=== PATIENT | male | born 1955 | race Two or more races ===

== ENCOUNTER 2023-09-26 10:50 | Inpatient (IN) | payer OTHER, MEDICAID ==
[2023-09-26] VITALS (37 sets, daily range): BP systolic 111–137; BP diastolic 63–86; PULSE 68–120; RESP 12–20; TEMP 97.3–99.1; O2SAT 80–98
[~2023-09-26] VITALS: Ht 157.5 cm; Wt 113.8 kg
[2023-09-26] MEDS: ALBUTEROL SULF 2.5 MG/0.5ML(0.5%) NEB SOLN HHN ONE (11:51)
[2023-09-26] MEDS: IPRATROPIUM BROM 0.5 MG/2.5ML INH SOL HHN ONE (11:51)
[2023-09-26] MEDS: SUCCINYLCHOLINE CHLORIDE 20 MG/ML 10ML VIAL IV ONE (12:00)
[2023-09-26 12:04] LABS: Hematocrit 40.8 % (41.0-53.0); Hemoglobin 13.1 g/dL (13.5-17.5); Mean Corpuscular Hemoglobin 29.3 pg (28.0-32.0); Mean Corpuscular Hgb Conc. 32.1 g/dL (32.0-36.0); Mean Corpuscular Volume 91.3 fL (80.0-100.0); Red Blood Cells 4.47 10^6/uL (4.5-5.90); Red Cell Distribution Width 15.3 % (11.8-14.3); White Blood Cell 8.4 10^3/uL (4.4-10.8)
[2023-09-26 12:08] LABS: Base Excess 13.1 mmol/L (-2.0-2.0)
[2023-09-26 12:13] LABS: Chloride 104 mmol/L (98-107); Potassium 4.2 mmol/L (3.5-5.1); Sodium 141 mmol/L (136-145)
[2023-09-26 12:14] LABS: Anion Gap 0 (5-15); Calcium 8.3 mg/dL (8.7-10.4); Carbon Dioxide 37 mmol/L (20-30)
[2023-09-26] MEDS: ETOMIDATE (2MG/ML) 20ML VIAL IV ONE (12:17)
[2023-09-26] MEDS: ROCURONIUM 10MG/ML 10ML VIAL IV ONE ×2 (12:17→13:04)
[2023-09-26 12:19] LABS: Blood Urea Nitrogen 19 mg/dL (9-23); Glucose 112 mg/dL (74-106)
[2023-09-26 12:25] LABS: Basophils % (manual) 0 (0.0-2.0); Blast Cells 0; Metamyelocytes % 0; Promyelocytes % 0; Reactive Lymphocytes 0
[2023-09-26 12:36] LABS: COVID19 ANTIGEN SOFIA FIA NEGATIVE (NEGATIVE)
[2023-09-26 12:39] LABS: Band Neutrophils % (manual) 1; Eosinophils % (manual) 1 (0-7); Lymphocytes % (manual) 14 (10.0-50.0); Monocytes % (manual) 10 (0-12); Myelocytes % 2; Platelet Estimate Decreased; Rouleau ED
[2023-09-26] MEDS: MIDAZOLAM DRIP 50 mg/50mL 50 ML IV SCH (12:44)
[2023-09-26] MEDS ORDERED: ALBUTEROL SULF 2.5 MG/0.5ML(0.5%) NEB SOLN NEB PRN (12:45)
[2023-09-26] MEDS ORDERED: IPRATROPIUM BROM 0.5 MG/2.5ML INH SOL NEB PRN (12:45)
[2023-09-26] MEDS: fentaNYL Drip 2500mCg/250mlNS 250 ML IV SCH (12:57)
[2023-09-26] MEDS: fentaNYL Drip 2500mCg/250mlNS 250 ML IV ONE (13:04)
[2023-09-26] MEDS ORDERED: TAMS0.4C36 PO (13:13)
[2023-09-26] MEDS ORDERED: RISP2TAB62 PO (13:13)
[2023-09-26] MEDS ORDERED: SERT-160 PO (13:13)
[2023-09-26] MEDS: IOHEXOL 350 MG/ML 100ML IJ ONE (13:34)
[2023-09-26] MEDS: IPRATROPIUM BROM 0.5 MG/2.5ML INH SOL NEB SCH (14:00)
[2023-09-26] MEDS: ALBUTEROL SULF 2.5 MG/0.5ML(0.5%) NEB SOLN NEB SCH (14:00)
[2023-09-26] MEDS: PROPOFOL 100 ML IV SCH (14:00)
[2023-09-26] MEDS: PROPOFOL 100 ML IV ONE (14:01)
[2023-09-26] MEDS: FUROSEMIDE 20 MG/2 ML VIAL IV ONE (14:23)
[2023-09-26] MEDS: ENOXAPARIN SOD 40 MG/0.4 ML SYRINGE SC ONE (14:23)
[2023-09-26] MEDS: PANTOPRAZOLE 40 MG/10 ML VIAL INJ IV ONE (14:23)
[2023-09-26 14:24] LABS: Albumin 3.7 g/dL (3.2-4.8); Blood Alcohol 3.9 mg/dL (<10); Magnesium 1.9 mg/dL (1.6-2.6)
[2023-09-26 14:25] LABS: Bilirubin, Direct 0.3 mg/dL (<0.3); Bilirubin, Total 0.9 mg/dL (0.2-1.0); Total Protein 6.9 g/dL (5.7-8.2)
[2023-09-26 14:27] LABS: Base Excess 5.5 mmol/L (-2.0-2.0)
[2023-09-26] MEDS: PIPERACILLIN-TAZOB 3.375GM 100 ML IV ONE (14:30)
[2023-09-26] MEDS: LIDOCAINE 2% JELLY 11ml (GLYDO) ONE (16:29)
[2023-09-26] MEDS: LIDOCAINE 2% JELLY 11ml (GLYDO) UR ONE (16:45)
[2023-09-26] MEDS: PIPERACILLIN-TAZOB 3.375GM 100 ML IV SCH (21:04)
[2023-09-26] MEDS: risperiDONE 1 MG TAB PO SCH (21:28)
[2023-09-26] MEDS ORDERED: PATIENTS OWN MEDICATION (Risperidone 1 TAB) PO SCH (22:00)
[2023-09-27] VITALS (101 sets, daily range): BP systolic 71–133; BP diastolic 40–79; PULSE 68–110; RESP 20–24; TEMP 96.3–100.2; O2SAT 86–100
[2023-09-27 01:14] LABS: Urine Bacteria None Seen /hpf (None Seen); Urine Blood TRACE /uL (Negative); Urine Clarity Clear (Clear); Urine Color Light-Yellow (Yellow); Urine Hyaline Cast FEW /lpf (0 - 2); Urine Protein, UAD 1+ (Negative); Urine Specific Gravity 1.032 (1.001-1.035); Urine Urobilinogen Normal (Negative); Urine WBC 5 /hpf (0 - 3)
[2023-09-27 01:24] LABS: Amphetamine Screen, Urine Neg (NEGATIVE); Barbiturate Scree,Urine Neg (NEGATIVE); Benzodiazephine Screen, Urine Pos (NEGATIVE); Cannabinoid Screen, Urine Neg (NEGATIVE); Cocaine Screen, Urine Neg (NEGATIVE); Opiate Scree,Urine Neg (NEGATIVE); Phencyclidine Screen, Urine Neg (NEGATIVE)
[2023-09-27 01:41] LABS: Rapid Influenza A Negative (Negative); Rapid Influenza B Negative (Negative)
[2023-09-27] MEDS: NOREPINEPHRINE 8 MG/250ML KIT 250 ML IV SCH (04:15)
[2023-09-27 04:22] LABS: Hemoglobin 12.1 g/dL (13.5-17.5); Mean Corpuscular Hemoglobin 28.9 pg (28.0-32.0); Mean Corpuscular Hgb Conc. 31.8 g/dL (32.0-36.0); Mean Corpuscular Volume 90.9 fL (80.0-100.0); Red Blood Cells 4.18 10^6/uL (4.5-5.90); Red Cell Distribution Width 15.6 % (11.8-14.3); White Blood Cell 7.3 10^3/uL (4.4-10.8)
[2023-09-27 04:33] LABS: Band Neutrophils % (manual) 0; Basophils % (manual) 0 (0.0-2.0); Blast Cells 0; Metamyelocytes % 0; Promyelocytes % 0; Reactive Lymphocytes 0
[2023-09-27 04:41] LABS: Alanine Aminotransferase 18 U/L (7-40); Albumin 3.1 g/dL (3.2-4.8); Alkaline Phosphatase 59 U/L (46-116); Anion Gap 5 (5-15); Aspartate Aminotransferase 12 U/L (13-40); BUN/Creatinine Ratio 14.5 (10.0-20.0); Bilirubin, Total 0.7 mg/dL (0.2-1.0); Blood Urea Nitrogen 12 mg/dL (9-23); Calcium 7.8 mg/dL (8.7-10.4); Carbon Dioxide 35 mmol/L (20-30); Chloride 103 mmol/L (98-107); Glucose 104 mg/dL (74-106); Magnesium 1.9 mg/dL (1.6-2.6); Potassium 3.2 mmol/L (3.5-5.1); Sodium 143 mmol/L (136-145); Total Protein 5.9 g/dL (5.7-8.2)
[2023-09-27 05:02] LABS: Eosinophils % (manual) 2 (0-7); Lymphocytes % (manual) 24 (10.0-50.0); Monocytes % (manual) 8 (0-12); Myelocytes % 3
[2023-09-27 05:03] LABS: Platelet Estimate Decreased
[2023-09-27 08:18] LABS: Base Excess 6.6 mmol/L (-2.0-2.0)
[2023-09-27] MEDS: TAMSULOSIN HYDROCHLORIDE 0.4 MG CAP PO SCH (08:21)
[2023-09-27] MEDS: PANTOPRAZOLE 40 MG/10 ML VIAL INJ IV SCH (08:21)
[2023-09-27] MEDS: SERTRALINE HCL 50 MG TAB PO SCH (08:23)
[2023-09-27] MEDS: FUROSEMIDE 20 MG/2 ML VIAL IV SCH (08:24)
[2023-09-27] MEDS: ENOXAPARIN SOD 40 MG/0.4 ML SYRINGE SC SCH (08:24)
[2023-09-27] MEDS ORDERED: VANCOMYCIN PER PHARMACY 0 MG IV SCH (10:15)
[2023-09-27] MEDS: POTASSIUM CHL 20MEQ/100ML 100 ML IV SCH (10:55)
[2023-09-27] MEDS ORDERED: FUROSEMIDE 20 MG/2 ML VIAL IV SCH (11:30)
[2023-09-27] MEDS: FUROSEMIDE 20 MG/2 ML VIAL IV ONE (12:09)
[2023-09-27] MEDS: VANCOMYCIN 1GM/200ML 200 ML IV ONE (13:04)
[2023-09-27] MEDS ORDERED: SODIUM CHLORIDE LOCK 10 ML ONE (13:34)
[2023-09-27] MEDS ORDERED: MIDAZOLAM HCL 5 MG/ML-1ML VIAL ONE (13:34)
[2023-09-27] MEDS ORDERED: fentaNYL CITRATE 100 MCG/2 ML VL ONE (13:35)
[2023-09-27] MEDS ORDERED: LIDOCAINE 2% JELLY 11ml (GLYDO) ONE (13:58)
[2023-09-27] MEDS ORDERED: EPINEPHrine HCL 1 MG/1 ML AMP ONE (13:59)
[2023-09-27] MEDS ORDERED: LIDOCAINE 2%HCL (LOCAL ANESTH.) INJ 20ML MDV ONE (13:59)
[2023-09-27] MEDS ORDERED: GLYCOPYRROLATE 0.2 MG/ML 1ML VIAL ONE (13:59)
[2023-09-27] MEDS: CEFEPIME 1GM/ 50ML 50 ML IV SCH (14:45)
[2023-09-27] MEDS ORDERED: FURO40TA4 PO (16:50)
[2023-09-27] MEDS ORDERED: METO25TA5 PO (16:50)
[2023-09-27] MEDS ORDERED: CHOL1TAB42 PO (16:50)
[2023-09-27] MEDS ORDERED: POTA-180 PO (16:50)
[2023-09-27] MEDS ORDERED: NIFE1TAB30 PO (16:50)
[2023-09-27] MEDS ORDERED: ROCURONIUM 10MG/ML 10ML VIAL IV PRN (18:30)
[2023-09-27] MEDS: VANCOMYCIN 1GM/200ML 200 ML IV SCH (20:56)
[2023-09-28] VITALS (113 sets, daily range): BP systolic 85–154; BP diastolic 44–86; PULSE 62–88; RESP 18–21; TEMP 96.6–99.1; O2SAT 80–100
[2023-09-28 04:11] LABS: Basophils # (auto) 0 10 ^3/uL (0-0.2); Basophils % (auto) 0.2 % (0.0-2.0); Eosinophils # (auto) 0.3 10 ^3/uL (0-0.8); Eosinophils % (auto) 3.9 % (0.0-7.0); Hematocrit 37.5 % (41.0-53.0); Hemoglobin 12.2 g/dL (13.5-17.5); Lymphocytes # (auto) 1.1 10 ^3/uL (0.4-5.4); Lymphocytes % (auto) 16.5 % (10.0-50.0); Mean Corpuscular Hemoglobin 29.4 pg (28.0-32.0); Mean Corpuscular Hgb Conc. 32.7 g/dL (32.0-36.0); Mean Corpuscular Volume 90.1 fL (80.0-100.0); Monocytes # (auto) 0.6 10 ^3/uL (0-1.3); Neutrophils # (auto) 4.6 10 ^3/uL (1.6-8.6); Neutrophils % (auto) 70.4 % (37.0-80.0); Nucleated Red Blood Cells % 0.3 %; Red Blood Cells 4.16 10^6/uL (4.5-5.90); Red Cell Distribution Width 15.8 % (11.8-14.3); White Blood Cell 6.6 10^3/uL (4.4-10.8)
[2023-09-28 04:38] LABS: Alanine Aminotransferase 14 U/L (7-40); Alkaline Phosphatase 59 U/L (46-116); Anion Gap 5 (5-15); Aspartate Aminotransferase 9 U/L (13-40); BUN/Creatinine Ratio 9.5 (10.0-20.0); Bilirubin, Total 0.8 mg/dL (0.2-1.0); Blood Urea Nitrogen 7 mg/dL (9-23); Calcium 7.3 mg/dL (8.5-10.1); Carbon Dioxide 33 mmol/L (20-30); Chloride 105 mmol/L (98-107); Glucose 95 mg/dL (74-106); Potassium 3.2 mmol/L (3.5-5.1); Sodium 143 mmol/L (136-145)
[2023-09-28 04:39] LABS: Total Protein 5.7 g/dL (5.7-8.2)
[2023-09-28] MEDS: POTASSIUM CHL 20MEQ/100ML 100 ML IV ONE ×2 (05:42→12:56)
[2023-09-28 07:34] LABS: Base Excess 6.3 mmol/L (-2.0-2.0)
[2023-09-28] MEDS: FUROSEMIDE 40 MG/4 ML VIAL IV SCH (09:52)
[2023-09-28] MEDS: POTASSIUM EFFERVESENT TAB 25 MEQ GT SCH (09:53)
[2023-09-28] MEDS: NOREPINEPHRINE 8 MG/250ML KIT 250 ML IV SCH (13:15)
[2023-09-29] VITALS (104 sets, daily range): BP systolic 84–149; BP diastolic 45–79; PULSE 65–102; RESP 14–30; TEMP 96.4–99; O2SAT 95–100
[2023-09-29 04:07] LABS: Basophils # (auto) 0 10 ^3/uL (0-0.2); Basophils % (auto) 0.4 % (0.0-2.0); Eosinophils # (auto) 0.3 10 ^3/uL (0-0.8); Eosinophils % (auto) 5.5 % (0.0-7.0); Hematocrit 37.7 % (41.0-53.0); Hemoglobin 12.1 g/dL (13.5-17.5); Lymphocytes # (auto) 1.1 10 ^3/uL (0.4-5.4); Lymphocytes % (auto) 21.8 % (10.0-50.0); Mean Corpuscular Hemoglobin 28.8 pg (28.0-32.0); Mean Corpuscular Hgb Conc. 32.1 g/dL (32.0-36.0); Mean Corpuscular Volume 89.6 fL (80.0-100.0); Monocytes # (auto) 0.5 10 ^3/uL (0-1.3); Monocytes % (auto) 8.8 % (0.0-12.0); Neutrophils # (auto) 3.3 10 ^3/uL (1.6-8.6); Neutrophils % (auto) 63.5 % (37.0-80.0); Nucleated Red Blood Cells % 0.2 %; Red Blood Cells 4.21 10^6/uL (4.5-5.90); Red Cell Distribution Width 15.7 % (11.8-14.3); White Blood Cell 5.2 10^3/uL (4.4-10.8)
[2023-09-29 04:33] LABS: Alanine Aminotransferase 10 U/L (7-40); Alkaline Phosphatase 56 U/L (46-116); Anion Gap 5 (5-15); BUN/Creatinine Ratio 9.3 (10.0-20.0); Blood Urea Nitrogen 7 mg/dL (9-23); Calcium 7.8 mg/dL (8.7-10.4); Carbon Dioxide 31 mmol/L (20-30); Chloride 109 mmol/L (98-107); Glucose 97 mg/dL (74-106); Potassium 3.4 mmol/L (3.5-5.1); Sodium 145 mmol/L (136-145)
[2023-09-29 04:34] LABS: Albumin 2.9 g/dL (3.2-4.8); Aspartate Aminotransferase 8 U/L (13-40); Bilirubin, Total 0.6 mg/dL (0.2-1.0); Total Protein 5.7 g/dL (5.7-8.2)
[2023-09-29 07:11] LABS: Base Excess 2.6 mmol/L (-2.0-2.0)
[2023-09-29] MEDS: METOCLOPRAMIDE HCL 5MG/ml INJ 2ml VIAL IV SCH (13:04)
[2023-09-29] MEDS: POTASSIUM CHL 20MEQ/100ML 100 ML IV ONE (13:04)
[2023-09-30] VITALS (102 sets, daily range): BP systolic 85–145; BP diastolic 46–86; PULSE 64–87; RESP 13–21; TEMP 97.9–99.1; O2SAT 85–98
[2023-09-30 03:07] LABS: Basophils # (auto) 0 10 ^3/uL (0-0.2); Basophils % (auto) 0.5 % (0.0-2.0); Eosinophils # (auto) 0.3 10 ^3/uL (0-0.8); Eosinophils % (auto) 7.3 % (0.0-7.0); Hematocrit 38.2 % (41.0-53.0); Hemoglobin 12.1 g/dL (13.5-17.5); Lymphocytes # (auto) 0.8 10 ^3/uL (0.4-5.4); Lymphocytes % (auto) 19.9 % (10.0-50.0); Mean Corpuscular Hemoglobin 28.4 pg (28.0-32.0); Mean Corpuscular Hgb Conc. 31.8 g/dL (32.0-36.0); Mean Corpuscular Volume 89.3 fL (80.0-100.0); Monocytes # (auto) 0.3 10 ^3/uL (0-1.3); Monocytes % (auto) 7.3 % (0.0-12.0); Neutrophils # (auto) 2.7 10 ^3/uL (1.6-8.6); Nucleated Red Blood Cells % 0.2 %; Red Blood Cells 4.28 10^6/uL (4.5-5.90); Red Cell Distribution Width 15.6 % (11.8-14.3); White Blood Cell 4.1 10^3/uL (4.4-10.8)
[2023-09-30 03:30] LABS: Alanine Aminotransferase 15 U/L (7-40); Albumin 2.9 g/dL (3.2-4.8); Alkaline Phosphatase 57 U/L (46-116); Anion Gap 1 (5-15); Aspartate Aminotransferase 18 U/L (13-40); BUN/Creatinine Ratio 10.7 (10.0-20.0); Bilirubin, Total 0.7 mg/dL (0.2-1.0); Blood Urea Nitrogen 8 mg/dL (9-23); Calcium 8.1 mg/dL (8.7-10.4); Carbon Dioxide 34 mmol/L (20-30); Chloride 109 mmol/L (98-107); Glucose 92 mg/dL (74-106); Potassium 3.7 mmol/L (3.5-5.1); Sodium 144 mmol/L (136-145); Total Protein 5.9 g/dL (5.7-8.2)
[2023-09-30] MEDS: POTASSIUM CHL 20MEQ/100ML 100 ML IV ONE (11:02)
[2023-09-30 15:54] LABS: Base Excess 6.6 mmol/L (-2.0-2.0)
[2023-10-01] VITALS (107 sets, daily range): BP systolic 103–170; BP diastolic 56–99; PULSE 66–102; RESP 15–23; TEMP 98.1–99.5; O2SAT 89–99
[2023-10-01 04:14] LABS: Basophils # (auto) 0 10 ^3/uL (0-0.2); Basophils % (auto) 0.2 % (0.0-2.0); Eosinophils # (auto) 0.3 10 ^3/uL (0-0.8); Eosinophils % (auto) 8.6 % (0.0-7.0); Hematocrit 37.7 % (41.0-53.0); Hemoglobin 12.1 g/dL (13.5-17.5); Lymphocytes # (auto) 0.7 10 ^3/uL (0.4-5.4); Lymphocytes % (auto) 17.8 % (10.0-50.0); Mean Corpuscular Hemoglobin 28.9 pg (28.0-32.0); Mean Corpuscular Hgb Conc. 32.1 g/dL (32.0-36.0); Monocytes # (auto) 0.3 10 ^3/uL (0-1.3); Monocytes % (auto) 7.8 % (0.0-12.0); Neutrophils # (auto) 2.4 10 ^3/uL (1.6-8.6); Neutrophils % (auto) 65.6 % (37.0-80.0); Nucleated Red Blood Cells % 0.2 %; Red Blood Cells 4.19 10^6/uL (4.5-5.90); Red Cell Distribution Width 15.8 % (11.8-14.3); White Blood Cell 3.7 10^3/uL (4.4-10.8)
[2023-10-01 04:25] LABS: Alanine Aminotransferase 40 U/L (7-40); Albumin 2.9 g/dL (3.2-4.8); Alkaline Phosphatase 55 U/L (46-116); Anion Gap 5 (5-15); Aspartate Aminotransferase 49 U/L (13-40); BUN/Creatinine Ratio 14.3 (10.0-20.0); Bilirubin, Total 0.5 mg/dL (0.2-1.0); Blood Urea Nitrogen 10 mg/dL (9-23); Calcium 8.5 mg/dL (8.7-10.4); Carbon Dioxide 31 mmol/L (20-30); Chloride 108 mmol/L (98-107); Glucose 88 mg/dL (74-106); Sodium 144 mmol/L (136-145)
[2023-10-01] MEDS: risperiDONE 1 MG TAB GT SCH (21:51)
[2023-10-02] VITALS (109 sets, daily range): BP systolic 102–186; BP diastolic 57–108; PULSE 71–112; RESP 12–36; TEMP 97.5–100; O2SAT 89–100
[2023-10-02 04:39] LABS: Basophils # (auto) 0 10 ^3/uL (0-0.2); Basophils % (auto) 0.3 % (0.0-2.0); Eosinophils # (auto) 0.3 10 ^3/uL (0-0.8); Eosinophils % (auto) 7.8 % (0.0-7.0); Hemoglobin 12.1 g/dL (13.5-17.5); Lymphocytes # (auto) 0.7 10 ^3/uL (0.4-5.4); Lymphocytes % (auto) 16.9 % (10.0-50.0); Mean Corpuscular Hemoglobin 28.5 pg (28.0-32.0); Mean Corpuscular Hgb Conc. 31.9 g/dL (32.0-36.0); Mean Corpuscular Volume 89.5 fL (80.0-100.0); Monocytes # (auto) 0.3 10 ^3/uL (0-1.3); Monocytes % (auto) 7.8 % (0.0-12.0); Neutrophils # (auto) 2.6 10 ^3/uL (1.6-8.6); Neutrophils % (auto) 67.2 % (37.0-80.0); Nucleated Red Blood Cells % 0.1 %; Red Blood Cells 4.25 10^6/uL (4.5-5.90); Red Cell Distribution Width 15.9 % (11.8-14.3); White Blood Cell 3.9 10^3/uL (4.4-10.8)
[2023-10-02 04:46] LABS: Chloride 105 mmol/L (98-107); Potassium 3.8 mmol/L (3.5-5.1); Sodium 143 mmol/L (136-145)
[2023-10-02 04:47] LABS: Anion Gap 5 (5-15); Calcium 8.6 mg/dL (8.5-10.1); Carbon Dioxide 33 mmol/L (20-30)
[2023-10-02 04:52] LABS: BUN/Creatinine Ratio 16.9 (10.0-20.0); Blood Urea Nitrogen 12 mg/dL (9-23); Glucose 93 mg/dL (74-106)
[2023-10-02 07:39] LABS: Base Excess 7.5 mmol/L (-2.0-2.0)
[2023-10-02] MEDS: hydrALAZINE HCL 20 MG/ML VL IV PRN (15:07)
[2023-10-03] VITALS (111 sets, daily range): BP systolic 83–166; BP diastolic 46–97; PULSE 70–96; RESP 10–21; TEMP 98.2–99.7; O2SAT 91–100
[2023-10-03 04:09] LABS: Basophils # (auto) 0 10 ^3/uL (0-0.2); Basophils % (auto) 0.2 % (0.0-2.0); Eosinophils # (auto) 0.4 10 ^3/uL (0-0.8); Eosinophils % (auto) 7.7 % (0.0-7.0); Hematocrit 39.1 % (41.0-53.0); Hemoglobin 12.5 g/dL (13.5-17.5); Lymphocytes # (auto) 0.7 10 ^3/uL (0.4-5.4); Lymphocytes % (auto) 14.4 % (10.0-50.0); Mean Corpuscular Hemoglobin 28.4 pg (28.0-32.0); Mean Corpuscular Hgb Conc. 32.1 g/dL (32.0-36.0); Mean Corpuscular Volume 88.6 fL (80.0-100.0); Monocytes # (auto) 0.4 10 ^3/uL (0-1.3); Monocytes % (auto) 7.9 % (0.0-12.0); Neutrophils # (auto) 3.4 10 ^3/uL (1.6-8.6); Neutrophils % (auto) 69.8 % (37.0-80.0); Nucleated Red Blood Cells % 0.2 %; Red Blood Cells 4.41 10^6/uL (4.5-5.90); Red Cell Distribution Width 15.6 % (11.8-14.3); White Blood Cell 4.9 10^3/uL (4.4-10.8)
[2023-10-03 04:22] LABS: Chloride 103 mmol/L (98-107); Potassium 3.8 mmol/L (3.5-5.1); Sodium 142 mmol/L (136-145)
[2023-10-03 04:23] LABS: Anion Gap 5 (5-15); Calcium 8.9 mg/dL (8.7-10.4); Carbon Dioxide 34 mmol/L (20-30)
[2023-10-03 04:28] LABS: Blood Urea Nitrogen 13 mg/dL (9-23); Glucose 108 mg/dL (74-106)
[2023-10-03 08:04] LABS: Base Excess 5.1 mmol/L (-2.0-2.0)
[2023-10-03] MEDS: PROPOFOL 100 ML IV SCH (14:15)
[2023-10-03] MEDS: DOCUSATE ORAL LIQUID 100 MG/10 ML UD GT SCH (14:24)
[2023-10-03 19:31] LABS: Base Excess 6.6 mmol/L (-2.0-2.0)
[2023-10-04] VITALS (106 sets, daily range): BP systolic 91–163; BP diastolic 51–85; PULSE 69–108; RESP 20–23; TEMP 98.4–99.9; O2SAT 75–100
[2023-10-04 04:20] LABS: Basophils # (auto) 0 10 ^3/uL (0-0.2); Basophils % (auto) 0.8 % (0.0-2.0); Eosinophils # (auto) 0.5 10 ^3/uL (0-0.8); Eosinophils % (auto) 10.5 % (0.0-7.0); Hematocrit 37.5 % (41.0-53.0); Lymphocytes # (auto) 0.9 10 ^3/uL (0.4-5.4); Lymphocytes % (auto) 21.1 % (10.0-50.0); Mean Corpuscular Hemoglobin 28.3 pg (28.0-32.0); Mean Corpuscular Hgb Conc. 32.1 g/dL (32.0-36.0); Monocytes # (auto) 0.4 10 ^3/uL (0-1.3); Monocytes % (auto) 9.8 % (0.0-12.0); Neutrophils # (auto) 2.6 10 ^3/uL (1.6-8.6); Neutrophils % (auto) 57.8 % (37.0-80.0); Nucleated Red Blood Cells % 0.1 %; Red Blood Cells 4.26 10^6/uL (4.5-5.90); Red Cell Distribution Width 15.4 % (11.8-14.3); White Blood Cell 4.4 10^3/uL (4.4-10.8)
[2023-10-04 04:34] LABS: Anion Gap 2 (5-15); Carbon Dioxide 37 mmol/L (20-30); Chloride 103 mmol/L (98-107); Sodium 142 mmol/L (136-145)
[2023-10-04 04:36] LABS: Calcium 8.8 mg/dL (8.7-10.4)
[2023-10-04 04:40] LABS: Glucose 100 mg/dL (74-106)
[2023-10-04 04:41] LABS: Blood Urea Nitrogen 17 mg/dL (9-23)
[2023-10-04 07:33] LABS: Base Excess 4.9 mmol/L (-2.0-2.0)
[2023-10-04] MEDS: PANTOPRAZOLE 40 MG/10 ML VIAL INJ IV SCH (22:20)
[2023-10-05] VITALS (109 sets, daily range): BP systolic 84–174; BP diastolic 46–96; PULSE 71–95; RESP 20–27; TEMP 98.8–100; O2SAT 87–99
[2023-10-05 04:14] LABS: Base Excess 8.5 mmol/L (-2.0-2.0)
[2023-10-05 04:29] LABS: Basophils # (auto) 0 10 ^3/uL (0-0.2); Basophils % (auto) 0.3 % (0.0-2.0); Eosinophils # (auto) 0.4 10 ^3/uL (0-0.8); Hematocrit 37.8 % (41.0-53.0); Hemoglobin 12.2 g/dL (13.5-17.5); Lymphocytes # (auto) 0.8 10 ^3/uL (0.4-5.4); Lymphocytes % (auto) 15.7 % (10.0-50.0); Mean Corpuscular Hemoglobin 28.6 pg (28.0-32.0); Mean Corpuscular Hgb Conc. 32.2 g/dL (32.0-36.0); Mean Corpuscular Volume 88.6 fL (80.0-100.0); Monocytes # (auto) 0.4 10 ^3/uL (0-1.3); Neutrophils # (auto) 3.6 10 ^3/uL (1.6-8.6); Nucleated Red Blood Cells % 0.2 %; Red Blood Cells 4.27 10^6/uL (4.5-5.90); Red Cell Distribution Width 15.5 % (11.8-14.3); White Blood Cell 5.3 10^3/uL (4.4-10.8)
[2023-10-05 04:36] LABS: Anion Gap 1 (5-15); Carbon Dioxide 39 mmol/L (20-30); Chloride 103 mmol/L (98-107); Potassium 3.7 mmol/L (3.5-5.1); Sodium 143 mmol/L (136-145)
[2023-10-05 04:37] LABS: Calcium 8.9 mg/dL (8.7-10.4)
[2023-10-05 04:41] LABS: Glucose 119 mg/dL (74-106)
[2023-10-05 04:42] LABS: BUN/Creatinine Ratio 21.8 (10.0-20.0); Blood Urea Nitrogen 17 mg/dL (9-23); Magnesium 2.2 mg/dL (1.6-2.6)
[2023-10-05 07:10] LABS: Base Excess 7.3 mmol/L (-2.0-2.0)
[2023-10-05] MEDS: risperiDONE 1 MG TAB GT SCH (09:53)
[2023-10-05] MEDS: SERTRALINE HCL 50 MG TAB PO SCH (09:54)
[2023-10-05] MEDS: fentaNYL Drip 2500mCg/250mlNS 250 ML IV SCH (15:45)
[2023-10-06] VITALS (107 sets, daily range): BP systolic 74–174; BP diastolic 33–92; PULSE 68–95; RESP 15–31; TEMP 98.8–99.7; O2SAT 87–100
[2023-10-06 04:08] LABS: Alanine Aminotransferase 18 U/L (7-40); Albumin 3.1 g/dL (3.2-4.8); Alkaline Phosphatase 49 U/L (46-116); Anion Gap 1 (5-15); Aspartate Aminotransferase 11 U/L (13-40); BUN/Creatinine Ratio 21.3 (10.0-20.0); Blood Urea Nitrogen 17 mg/dL (9-23); Calcium 8.7 mg/dL (8.7-10.4); Carbon Dioxide 37 mmol/L (20-30); Chloride 104 mmol/L (98-107); Glucose 131 mg/dL (74-106); Magnesium 2.2 mg/dL (1.6-2.6); Potassium 3.5 mmol/L (3.5-5.1); Sodium 142 mmol/L (136-145)
[2023-10-06 04:09] LABS: Bilirubin, Total 0.4 mg/dL (0.2-1.0); Total Protein 6.8 g/dL (5.7-8.2)
[2023-10-06 04:16] LABS: Hematocrit 37.6 % (41.0-53.0); Hemoglobin 12.3 g/dL (13.5-17.5); Mean Corpuscular Hemoglobin 29.2 pg (28.0-32.0); Mean Corpuscular Hgb Conc. 32.9 g/dL (32.0-36.0); Mean Corpuscular Volume 88.7 fL (80.0-100.0); Red Blood Cells 4.23 10^6/uL (4.5-5.90); Red Cell Distribution Width 15.2 % (11.8-14.3); White Blood Cell 5.3 10^3/uL (4.4-10.8)
[2023-10-06 04:58] LABS: Basophils % (manual) 0 (0.0-2.0); Blast Cells 0; Metamyelocytes % 0; Promyelocytes % 0; Reactive Lymphocytes 0
[2023-10-06] MEDS: Jevity 1.2 Cal/Fiber 1 Liter GT SCH (05:41)
[2023-10-06 06:56] LABS: Band Neutrophils % (manual) 2; Eosinophils % (manual) 7 (0-7); Lymphocytes % (manual) 28 (10.0-50.0); Monocytes % (manual) 5 (0-12); Myelocytes % 1; Platelet Estimate Adequate
[2023-10-06 07:21] LABS: Base Excess 8.6 mmol/L (-2.0-2.0)
[2023-10-07] VITALS (106 sets, daily range): BP systolic 76–178; BP diastolic 43–91; PULSE 63–104; RESP 15–24; TEMP 98.2–100; O2SAT 94–100
[2023-10-07 04:02] LABS: Basophils # (auto) 0 10 ^3/uL (0-0.2); Basophils % (auto) 0.3 % (0.0-2.0); Eosinophils # (auto) 0.6 10 ^3/uL (0-0.8); Eosinophils % (auto) 10.5 % (0.0-7.0); Hematocrit 37.1 % (41.0-53.0); Hemoglobin 11.8 g/dL (13.5-17.5); Lymphocytes # (auto) 1.3 10 ^3/uL (0.4-5.4); Lymphocytes % (auto) 23.3 % (10.0-50.0); Mean Corpuscular Hemoglobin 27.9 pg (28.0-32.0); Mean Corpuscular Hgb Conc. 31.9 g/dL (32.0-36.0); Mean Corpuscular Volume 87.7 fL (80.0-100.0); Monocytes # (auto) 0.4 10 ^3/uL (0-1.3); Monocytes % (auto) 6.6 % (0.0-12.0); Neutrophils # (auto) 3.2 10 ^3/uL (1.6-8.6); Neutrophils % (auto) 59.3 % (37.0-80.0); Nucleated Red Blood Cells % 0.1 %; Red Blood Cells 4.23 10^6/uL (4.5-5.90); Red Cell Distribution Width 15.5 % (11.8-14.3); White Blood Cell 5.4 10^3/uL (4.4-10.8)
[2023-10-07 04:19] LABS: Alanine Aminotransferase 17 U/L (7-40); Albumin 3.2 g/dL (3.2-4.8); Alkaline Phosphatase 49 U/L (46-116); Anion Gap 4 (5-15); Aspartate Aminotransferase 11 U/L (13-40); BUN/Creatinine Ratio 22.4 (10.0-20.0); Bilirubin, Total 0.5 mg/dL (0.2-1.0); Blood Urea Nitrogen 15 mg/dL (9-23); Calcium 8.7 mg/dL (8.5-10.1); Carbon Dioxide 34 mmol/L (20-30); Chloride 104 mmol/L (98-107); Glucose 109 mg/dL (74-106); Potassium 3.2 mmol/L (3.5-5.1); Sodium 142 mmol/L (136-145); Total Protein 6.8 g/dL (5.7-8.2)
[2023-10-07] MEDS ORDERED: POTASSIUM CHL 20MEQ/100ML 100 ML IV SCH (06:45)
[2023-10-07] MEDS: POTASSIUM CHL 20MEQ/100ML 100 ML IV ONE (06:59)
[2023-10-07 07:56] LABS: Base Excess 7.9 mmol/L (-2.0-2.0)
[2023-10-07] MEDS ORDERED: VANCOMYCIN PER PHARMACY 0 MG IV SCH (12:30)
[2023-10-07] MEDS: AZITHROMYCIN 500MG/ 250ML 250 ML IV SCH (13:35)
[2023-10-07] MEDS: VANCOMYCIN 1GM/200ML 200 ML IV ONE (13:35)
[2023-10-07] MEDS: VANCOMYCIN 1GM/200ML 200 ML IV SCH (21:06)
[2023-10-08] VITALS (108 sets, daily range): BP systolic 68–178; BP diastolic 33–86; PULSE 66–105; RESP 18–27; TEMP 96.1–99.7; O2SAT 92–100
[2023-10-08 04:02] LABS: Basophils # (auto) 0 10 ^3/uL (0-0.2); Basophils % (auto) 0.2 % (0.0-2.0); Eosinophils # (auto) 0.6 10 ^3/uL (0-0.8); Eosinophils % (auto) 11.1 % (0.0-7.0); Hematocrit 37.7 % (41.0-53.0); Hemoglobin 11.9 g/dL (13.5-17.5); Lymphocytes # (auto) 1.2 10 ^3/uL (0.4-5.4); Lymphocytes % (auto) 21.3 % (10.0-50.0); Mean Corpuscular Hemoglobin 27.8 pg (28.0-32.0); Mean Corpuscular Hgb Conc. 31.5 g/dL (32.0-36.0); Mean Corpuscular Volume 88.3 fL (80.0-100.0); Monocytes # (auto) 0.3 10 ^3/uL (0-1.3); Monocytes % (auto) 4.6 % (0.0-12.0); Neutrophils # (auto) 3.5 10 ^3/uL (1.6-8.6); Neutrophils % (auto) 62.8 % (37.0-80.0); Nucleated Red Blood Cells % 0.1 %; Red Blood Cells 4.27 10^6/uL (4.5-5.90); Red Cell Distribution Width 15.4 % (11.8-14.3); White Blood Cell 5.6 10^3/uL (4.4-10.8)
[2023-10-08 04:15] LABS: Chloride 104 mmol/L (98-107); Potassium 3.6 mmol/L (3.5-5.1); Sodium 141 mmol/L (136-145)
[2023-10-08 04:16] LABS: Anion Gap 6 (5-15); Calcium 8.7 mg/dL (8.5-10.1); Carbon Dioxide 31 mmol/L (20-30)
[2023-10-08 04:21] LABS: BUN/Creatinine Ratio 22.5 (10.0-20.0); Blood Urea Nitrogen 16 mg/dL (9-23); Glucose 107 mg/dL (74-106)
[2023-10-08 07:05] LABS: Base Excess 6.4 mmol/L (-2.0-2.0)
[2023-10-08 12:12] LABS: Base Excess 5.4 mmol/L (-2.0-2.0)
[2023-10-09] VITALS (107 sets, daily range): BP systolic 79–152; BP diastolic 41–88; PULSE 68–98; RESP 18–29; TEMP 97.9–100; O2SAT 91–100
[2023-10-09] MEDS: VANCOMYCIN 1GM/200ML 200 ML IV SCH (01:19)
[2023-10-09 04:14] LABS: Hematocrit 38.6 % (41.0-53.0); Hemoglobin 12.3 g/dL (13.5-17.5); Mean Corpuscular Hemoglobin 28.3 pg (28.0-32.0); Mean Corpuscular Hgb Conc. 31.8 g/dL (32.0-36.0); Mean Corpuscular Volume 89.2 fL (80.0-100.0); Red Blood Cells 4.33 10^6/uL (4.5-5.90); Red Cell Distribution Width 15.5 % (11.8-14.3); White Blood Cell 6.4 10^3/uL (4.4-10.8)
[2023-10-09 04:24] LABS: Anion Gap 7 (5-15); Calcium 9.2 mg/dL (8.7-10.4); Carbon Dioxide 31 mmol/L (20-30); Chloride 104 mmol/L (98-107); Potassium 3.8 mmol/L (3.5-5.1); Sodium 142 mmol/L (136-145)
[2023-10-09 04:30] LABS: BUN/Creatinine Ratio 19.8 (10.0-20.0); Blood Urea Nitrogen 16 mg/dL (9-23); Glucose 117 mg/dL (74-106)
[2023-10-09 04:37] LABS: Basophils % (manual) 0 (0.0-2.0); Blast Cells 0; Metamyelocytes % 0; Promyelocytes % 0; Reactive Lymphocytes 0
[2023-10-09 05:14] LABS: Band Neutrophils % (manual) 4; Eosinophils % (manual) 10 (0-7); Lymphocytes % (manual) 20 (10.0-50.0); Monocytes % (manual) 9 (0-12); Myelocytes % 2
[2023-10-09 05:15] LABS: Platelet Estimate Adequate
[2023-10-09 08:54] LABS: Base Excess 2.8 mmol/L (-2.0-2.0)
[2023-10-09] MEDS: ENOXAPARIN SOD 100 MG/1 ML SYRINGE SC SCH (21:50)
[2023-10-10] VITALS (101 sets, daily range): BP systolic 62–169; BP diastolic 29–84; PULSE 64–99; RESP 0–43; TEMP 96.1–99.5; O2SAT 89–100
[2023-10-10 04:15] LABS: Hematocrit 34.5 % (41.0-53.0); Hemoglobin 11.1 g/dL (13.5-17.5); Mean Corpuscular Hemoglobin 28.7 pg (28.0-32.0); Mean Corpuscular Hgb Conc. 32.1 g/dL (32.0-36.0); Mean Corpuscular Volume 89.6 fL (80.0-100.0); Red Blood Cells 3.86 10^6/uL (4.5-5.90); Red Cell Distribution Width 14.9 % (11.8-14.3); White Blood Cell 5.9 10^3/uL (4.4-10.8)
[2023-10-10 04:24] LABS: Alanine Aminotransferase 14 U/L (7-40); Albumin 3.1 g/dL (3.2-4.8); Alkaline Phosphatase 44 U/L (46-116); Anion Gap 7 (5-15); Aspartate Aminotransferase 12 U/L (13-40); BUN/Creatinine Ratio 21.3 (10.0-20.0); Bilirubin, Total 0.3 mg/dL (0.2-1.0); Blood Urea Nitrogen 13 mg/dL (9-23); Calcium 8.9 mg/dL (8.7-10.4); Carbon Dioxide 29 mmol/L (20-30); Chloride 104 mmol/L (98-107); Glucose 116 mg/dL (74-106); Potassium 3.8 mmol/L (3.5-5.1); Sodium 140 mmol/L (136-145); Total Protein 6.7 g/dL (5.7-8.2)
[2023-10-10 04:49] LABS: Basophils % (manual) 0 (0.0-2.0); Blast Cells 0; Myelocytes % 0; Promyelocytes % 0; Reactive Lymphocytes 0
[2023-10-10 07:42] LABS: Base Excess 0.1 mmol/L (-2.0-2.0)
[2023-10-10 09:44] LABS: Band Neutrophils % (manual) 2; Eosinophils % (manual) 13 (0-7); Lymphocytes % (manual) 14 (10.0-50.0); Metamyelocytes % 2; Monocytes % (manual) 7 (0-12); Platelet Estimate Adequate
[2023-10-10 14:32] LABS: Base Excess 5.8 mmol/L (-2.0-2.0)
[2023-10-10] MEDS: PROPOFOL 100 ML IV ONE (14:33)
[2023-10-10] MEDS: PROPOFOL 100 ML IV SCH (15:00)
[2023-10-11] VITALS (107 sets, daily range): BP systolic 81–148; BP diastolic 40–82; PULSE 58–88; RESP 20–25; TEMP 73.6–99.9; O2SAT 85–99
[2023-10-11 04:10] LABS: Hematocrit 34.2 % (41.0-53.0); Hemoglobin 11.2 g/dL (13.5-17.5); Mean Corpuscular Hemoglobin 28.8 pg (28.0-32.0); Mean Corpuscular Hgb Conc. 32.7 g/dL (32.0-36.0); Red Blood Cells 3.89 10^6/uL (4.5-5.90); White Blood Cell 5.4 10^3/uL (4.4-10.8)
[2023-10-11 04:22] LABS: Basophils % (manual) 0 (0.0-2.0); Blast Cells 0; Metamyelocytes % 0; Myelocytes % 0; Promyelocytes % 0; Reactive Lymphocytes 0
[2023-10-11 04:34] LABS: Alanine Aminotransferase 13 U/L (7-40); Albumin 3.1 g/dL (3.2-4.8); Alkaline Phosphatase 44 U/L (46-116); Anion Gap 2 (5-15); Aspartate Aminotransferase 12 U/L (13-40); BUN/Creatinine Ratio 18.6 (10.0-20.0); Bilirubin, Total 0.2 mg/dL (0.2-1.0); Blood Urea Nitrogen 11 mg/dL (9-23); Calcium 8.7 mg/dL (8.5-10.1); Carbon Dioxide 34 mmol/L (20-30); Chloride 105 mmol/L (98-107); Glucose 98 mg/dL (74-106); Potassium 3.8 mmol/L (3.5-5.1); Sodium 141 mmol/L (136-145); Total Protein 6.5 g/dL (5.7-8.2)
[2023-10-11 08:25] LABS: Band Neutrophils % (manual) 1; Eosinophils % (manual) 10 (0-7); Lymphocytes % (manual) 17 (10.0-50.0); Monocytes % (manual) 1 (0-12)
[2023-10-11 08:26] LABS: Platelet Estimate Adequate
[2023-10-11 08:51] LABS: Base Excess 3.9 mmol/L (-2.0-2.0)
[2023-10-12] VITALS (107 sets, daily range): BP systolic 83–181; BP diastolic 44–86; PULSE 57–87; RESP 18–27; TEMP 92.3–99; O2SAT 82–98
[2023-10-12 04:31] LABS: Anion Gap 8 (5-15); Carbon Dioxide 31 mmol/L (20-30); Chloride 103 mmol/L (98-107); Potassium 3.5 mmol/L (3.5-5.1); Sodium 142 mmol/L (136-145)
[2023-10-12 04:33] LABS: Calcium 8.7 mg/dL (8.7-10.4)
[2023-10-12 04:37] LABS: BUN/Creatinine Ratio 22.6 (10.0-20.0); Blood Urea Nitrogen 12 mg/dL (9-23); Glucose 98 mg/dL (74-106)
[2023-10-12 04:43] LABS: Hematocrit 34.9 % (41.0-53.0); Hemoglobin 11.4 g/dL (13.5-17.5); Mean Corpuscular Hemoglobin 28.5 pg (28.0-32.0); Mean Corpuscular Hgb Conc. 32.6 g/dL (32.0-36.0); Mean Corpuscular Volume 87.6 fL (80.0-100.0); Red Blood Cells 3.98 10^6/uL (4.5-5.90); Red Cell Distribution Width 15.1 % (11.8-14.3); White Blood Cell 4.6 10^3/uL (4.4-10.8)
[2023-10-12 05:41] LABS: Band Neutrophils % (manual) 0; Basophils % (manual) 0 (0.0-2.0); Blast Cells 0; Metamyelocytes % 0; Myelocytes % 0; Promyelocytes % 0; Reactive Lymphocytes 0
[2023-10-12 07:51] LABS: Base Excess 5.8 mmol/L (-2.0-2.0)
[2023-10-12 09:53] LABS: Eosinophils % (manual) 20 (0-7); Lymphocytes % (manual) 32 (10.0-50.0); Monocytes % (manual) 2 (0-12); Platelet Estimate Adequate
[2023-10-12] MEDS: Jevity 1.2 Cal/Fiber 1 Liter GT SCH (10:45)
[2023-10-13] VITALS (104 sets, daily range): BP systolic 71–158; BP diastolic 36–88; PULSE 60–100; RESP 16–26; TEMP 97.2–99.1; O2SAT 87–99
[2023-10-13 03:50] LABS: Hematocrit 33.8 % (41.0-53.0); Hemoglobin 11.2 g/dL (13.5-17.5); Mean Corpuscular Hemoglobin 29.2 pg (28.0-32.0); Mean Corpuscular Hgb Conc. 33.3 g/dL (32.0-36.0); Mean Corpuscular Volume 87.8 fL (80.0-100.0); Red Blood Cells 3.85 10^6/uL (4.5-5.90); White Blood Cell 4.6 10^3/uL (4.4-10.8)
[2023-10-13 04:03] LABS: Alanine Aminotransferase 19 U/L (7-40); Alkaline Phosphatase 47 U/L (46-116); Anion Gap 7 (5-15); Aspartate Aminotransferase 21 U/L (13-40); BUN/Creatinine Ratio 22.4 (10.0-20.0); Bilirubin, Total 0.2 mg/dL (0.2-1.0); Blood Urea Nitrogen 11 mg/dL (9-23); Calcium 8.6 mg/dL (8.7-10.4); Carbon Dioxide 31 mmol/L (20-30); Chloride 103 mmol/L (98-107); Glucose 120 mg/dL (74-106); Magnesium 1.8 mg/dL (1.6-2.6); Potassium 3.4 mmol/L (3.5-5.1); Sodium 141 mmol/L (136-145); Total Protein 6.7 g/dL (5.7-8.2)
[2023-10-13 04:27] LABS: Basophils % (manual) 0 (0.0-2.0); Blast Cells 0; Metamyelocytes % 0; Myelocytes % 0; Promyelocytes % 0; Reactive Lymphocytes 0
[2023-10-13] MEDS: POTASSIUM CHL 20MEQ/100ML 100 ML IV ONE (07:05)
[2023-10-13 08:06] LABS: Band Neutrophils % (manual) 1; Eosinophils % (manual) 15 (0-7); Lymphocytes % (manual) 25 (10.0-50.0); Monocytes % (manual) 2 (0-12); Platelet Estimate Adequate
[2023-10-13 09:56] LABS: Base Excess 6.6 mmol/L (-2.0-2.0)
[2023-10-14] VITALS (108 sets, daily range): BP systolic 71–168; BP diastolic 39–94; PULSE 62–94; RESP 18–26; TEMP 97.9–100; O2SAT 91–98
[2023-10-14 04:20] LABS: Hematocrit 35.1 % (41.0-53.0); Hemoglobin 11.5 g/dL (13.5-17.5); Mean Corpuscular Hemoglobin 28.9 pg (28.0-32.0); Mean Corpuscular Hgb Conc. 32.8 g/dL (32.0-36.0); Mean Corpuscular Volume 88.2 fL (80.0-100.0); Red Blood Cells 3.98 10^6/uL (4.5-5.90); Red Cell Distribution Width 15.2 % (11.8-14.3); White Blood Cell 9.5 10^3/uL (4.4-10.8)
[2023-10-14 04:32] LABS: Basophils % (manual) 0 (0.0-2.0); Blast Cells 0; Metamyelocytes % 0; Promyelocytes % 0; Reactive Lymphocytes 0
[2023-10-14 04:41] LABS: Chloride 103 mmol/L (98-107); Potassium 3.9 mmol/L (3.5-5.1); Sodium 139 mmol/L (136-145)
[2023-10-14 04:42] LABS: Anion Gap 5 (5-15); Calcium 8.7 mg/dL (8.5-10.1); Carbon Dioxide 31 mmol/L (20-30)
[2023-10-14 04:47] LABS: BUN/Creatinine Ratio 17.3 (10.0-20.0); Blood Urea Nitrogen 9 mg/dL (9-23); Glucose 109 mg/dL (74-106)
[2023-10-14 05:46] LABS: Band Neutrophils % (manual) 3; Eosinophils % (manual) 11 (0-7); Lymphocytes % (manual) 20 (10.0-50.0); Monocytes % (manual) 5 (0-12); Myelocytes % 1
[2023-10-14 05:47] LABS: Platelet Estimate Adequate
[2023-10-14] MEDS ORDERED: VANCOMYCIN PER PHARMACY 0 MG IV SCH (15:00)
[2023-10-14 15:17] LABS: Base Excess 4.2 mmol/L (-2.0-2.0)
[2023-10-14] MEDS: VANCOMYCIN 1GM/200ML 200 ML IV SCH (15:43)
[2023-10-14] MEDS: CATHFLO ACTIVASE (ALTEPLASE) 2 MG VIAL IV ONE (17:48)
[2023-10-14] MEDS: SENNA 8.6 MG TAB PO SCH (22:54)
[2023-10-15] VITALS (109 sets, daily range): BP systolic 83–145; BP diastolic 46–84; PULSE 60–95; RESP 23–25; TEMP 97.9–98.8; O2SAT 89–99
[2023-10-15 04:28] LABS: Hematocrit 30.8 % (41.0-53.0); Hemoglobin 10.1 g/dL (13.5-17.5); Mean Corpuscular Hemoglobin 28.9 pg (28.0-32.0); Mean Corpuscular Hgb Conc. 32.6 g/dL (32.0-36.0); Mean Corpuscular Volume 88.6 fL (80.0-100.0); Red Blood Cells 3.48 10^6/uL (4.5-5.90); Red Cell Distribution Width 15.2 % (11.8-14.3); White Blood Cell 5.5 10^3/uL (4.4-10.8)
[2023-10-15 04:29] LABS: Anion Gap 8 (5-15); Carbon Dioxide 31 mmol/L (20-30); Chloride 102 mmol/L (98-107); Potassium 3.8 mmol/L (3.5-5.1); Sodium 141 mmol/L (136-145)
[2023-10-15 04:30] LABS: Calcium 8.5 mg/dL (8.7-10.4)
[2023-10-15 04:32] LABS: Basophils % (manual) 0 (0.0-2.0); Blast Cells 0; Promyelocytes % 0; Reactive Lymphocytes 0
[2023-10-15 04:35] LABS: BUN/Creatinine Ratio 20.4 (10.0-20.0); Blood Urea Nitrogen 11 mg/dL (9-23); Glucose 104 mg/dL (74-106)
[2023-10-15] MEDS: fentaNYL Drip 2500mCg/250mlNS 250 ML IV SCH (04:56)
[2023-10-15 06:10] LABS: Band Neutrophils % (manual) 4; Eosinophils % (manual) 17 (0-7); Lymphocytes % (manual) 28 (10.0-50.0); Metamyelocytes % 1; Monocytes % (manual) 2 (0-12); Myelocytes % 2; Platelet Estimate Adequate
[2023-10-15 07:54] LABS: Base Excess 4.2 mmol/L (-2.0-2.0)
[2023-10-15 13:12] LABS: Base Excess 4.5 mmol/L (-2.0-2.0)
[2023-10-15] MEDS: NOREPINEPHRINE 8 MG/250ML KIT 250 ML IV SCH (15:30)
[2023-10-16] VITALS (107 sets, daily range): BP systolic 80–144; BP diastolic 44–80; PULSE 62–87; RESP 15–28; TEMP 95.5–99.1; O2SAT 89–96
[2023-10-16] MEDS: VANCOMYCIN 1GM/200ML 200 ML IV SCH (01:54)
[2023-10-16 04:41] LABS: Hematocrit 30.2 % (41.0-53.0); Hemoglobin 9.8 g/dL (13.5-17.5); Mean Corpuscular Hemoglobin 28.6 pg (28.0-32.0); Mean Corpuscular Hgb Conc. 32.5 g/dL (32.0-36.0); Mean Corpuscular Volume 88.2 fL (80.0-100.0); Red Blood Cells 3.43 10^6/uL (4.5-5.90); Red Cell Distribution Width 15.3 % (11.8-14.3); White Blood Cell 4.9 10^3/uL (4.4-10.8)
[2023-10-16 04:47] LABS: Band Neutrophils % (manual) 0; Basophils % (manual) 0 (0.0-2.0); Blast Cells 0; Promyelocytes % 0; Reactive Lymphocytes 0
[2023-10-16 04:53] LABS: Anion Gap 8 (5-15); Carbon Dioxide 30 mmol/L (20-30); Chloride 103 mmol/L (98-107); Potassium 3.6 mmol/L (3.5-5.1); Sodium 141 mmol/L (136-145)
[2023-10-16 04:54] LABS: Calcium 8.5 mg/dL (8.7-10.4)
[2023-10-16 04:59] LABS: BUN/Creatinine Ratio 20.8 (10.0-20.0); Blood Urea Nitrogen 10 mg/dL (9-23); Glucose 95 mg/dL (74-106)
[2023-10-16 05:00] LABS: Magnesium 1.8 mg/dL (1.6-2.6)
[2023-10-16 05:37] LABS: Eosinophils % (manual) 22 (0-7); Lymphocytes % (manual) 29 (10.0-50.0); Metamyelocytes % 2; Monocytes % (manual) 7 (0-12); Myelocytes % 1
[2023-10-16 05:38] LABS: Platelet Estimate Adequate
[2023-10-16 07:21] LABS: Base Excess 5.1 mmol/L (-2.0-2.0)
[2023-10-16] MEDS: POLYETHYLENE GLYCOL 17 GM PWDR PO SCH (12:18)
[2023-10-16] MEDS: ENOXAPARIN SOD 120 MG/0.8 ML SYRINGE SC SCH (23:30)
[2023-10-17] VITALS (103 sets, daily range): BP systolic 80–149; BP diastolic 47–86; PULSE 71–96; RESP 15–30; TEMP 98.2–99.7; O2SAT 50–100
[2023-10-17 04:03] LABS: Hematocrit 30.3 % (41.0-53.0); Hemoglobin 9.9 g/dL (13.5-17.5); Mean Corpuscular Hemoglobin 28.6 pg (28.0-32.0); Mean Corpuscular Hgb Conc. 32.5 g/dL (32.0-36.0); Mean Corpuscular Volume 87.9 fL (80.0-100.0); Red Blood Cells 3.45 10^6/uL (4.5-5.90); White Blood Cell 5.7 10^3/uL (4.4-10.8)
[2023-10-17 04:22] LABS: Basophils % (manual) 0 (0.0-2.0); Blast Cells 0; Promyelocytes % 0; Reactive Lymphocytes 0
[2023-10-17 04:25] LABS: Alanine Aminotransferase 23 U/L (7-40); Albumin 3.1 g/dL (3.2-4.8); Alkaline Phosphatase 46 U/L (46-116); Anion Gap 4 (5-15); Aspartate Aminotransferase 19 U/L (13-40); BUN/Creatinine Ratio 23.4 (10.0-20.0); Blood Urea Nitrogen 11 mg/dL (9-23); Calcium 8.7 mg/dL (8.5-10.1); Carbon Dioxide 31 mmol/L (20-30); Chloride 104 mmol/L (98-107); Glucose 97 mg/dL (74-106); Magnesium 1.9 mg/dL (1.6-2.6); Potassium 3.4 mmol/L (3.5-5.1); Sodium 139 mmol/L (136-145)
[2023-10-17 04:26] LABS: Bilirubin, Total 0.3 mg/dL (0.2-1.0); Total Protein 6.4 g/dL (5.7-8.2)
[2023-10-17 05:44] LABS: Band Neutrophils % (manual) 3; Eosinophils % (manual) 15 (0-7); Lymphocytes % (manual) 32 (10.0-50.0); Metamyelocytes % 1; Monocytes % (manual) 7 (0-12); Myelocytes % 4
[2023-10-17 05:45] LABS: Platelet Estimate Adequate; Stomatocytes Few
[2023-10-17 05:46] LABS: Large Platelets FEW
[2023-10-17] MEDS: POTASSIUM CHL 20 Meq TABLET PO ONE (07:22)
[2023-10-17 07:24] LABS: Base Excess 4.3 mmol/L (-2.0-2.0)
[2023-10-17] MEDS: POTASSIUM CHL 20MEQ/100ML 100 ML IV ONE (07:24)
[2023-10-17] MEDS: FUROSEMIDE 40 MG/4 ML VIAL IV SCH (08:13)
[2023-10-17] MEDS: BUMETANIDE 2.5mg/10ml (0.25 mg/ml) INJ IV SCH (10:41)
[2023-10-17] MEDS: PROPOFOL 100 ML IV SCH (15:00)
[2023-10-17] MEDS: CEFTAZIDIME-AVIBACTAM 2.5gm in D5W 100 ML IV SCH (16:47)
[2023-10-18] VITALS (104 sets, daily range): BP systolic 92–145; BP diastolic 53–84; PULSE 74–121; RESP 11–34; TEMP 90.7–100.6; O2SAT 90–100
[2023-10-18 03:48] LABS: Anion Gap 8 (5-15); Carbon Dioxide 33 mmol/L (20-30); Chloride 101 mmol/L (98-107); Hemoglobin 9.4 g/dL (13.5-17.5); Mean Corpuscular Hemoglobin 30.4 pg (28.0-32.0); Mean Corpuscular Hgb Conc. 34.8 g/dL (32.0-36.0); Mean Corpuscular Volume 87.4 fL (80.0-100.0); Potassium 3.9 mmol/L (3.5-5.1); Red Blood Cells 3.09 10^6/uL (4.5-5.90); Red Cell Distribution Width 14.9 % (11.8-14.3); Sodium 142 mmol/L (136-145); White Blood Cell 6.1 10^3/uL (4.4-10.8)
[2023-10-18 03:49] LABS: Calcium 8.9 mg/dL (8.7-10.4)
[2023-10-18 03:54] LABS: BUN/Creatinine Ratio 21.6 (10.0-20.0); Blood Urea Nitrogen 11 mg/dL (9-23); Glucose 106 mg/dL (74-106)
[2023-10-18 03:55] LABS: Magnesium 1.8 mg/dL (1.6-2.6)
[2023-10-18 04:04] LABS: Band Neutrophils % (manual) 0; Basophils % (manual) 0 (0.0-2.0); Blast Cells 0; Metamyelocytes % 0; Myelocytes % 0; Promyelocytes % 0; Reactive Lymphocytes 0
[2023-10-18 05:23] LABS: Lymphocytes % (manual) 29 (10.0-50.0); Monocytes % (manual) 8 (0-12)
[2023-10-18 05:24] LABS: Eosinophils % (manual) 13 (0-7); Large Platelets FEW; Platelet Estimate Adequate; Stomatocytes Few
[2023-10-18 07:46] LABS: Base Excess 4.9 mmol/L (-2.0-2.0)
[2023-10-18 16:07] LABS: Base Excess 7.7 mmol/L (-2.0-2.0)
[2023-10-18] MEDS: ACETAMINOPHEN 325 MG TAB PO PRN (23:53)
[2023-10-19] VITALS (105 sets, daily range): BP systolic 97–186; BP diastolic 42–115; PULSE 79–127; RESP 12–35; TEMP 98.2–101.3; O2SAT 89–100
[2023-10-19 03:46] LABS: Hematocrit 26.8 % (41.0-53.0); Hemoglobin 8.9 g/dL (13.5-17.5); Mean Corpuscular Hemoglobin 28.6 pg (28.0-32.0); Mean Corpuscular Hgb Conc. 33.1 g/dL (32.0-36.0); Mean Corpuscular Volume 86.4 fL (80.0-100.0); Red Cell Distribution Width 15.1 % (11.8-14.3); White Blood Cell 6.8 10^3/uL (4.4-10.8)
[2023-10-19 03:50] LABS: Basophils % (manual) 0 (0.0-2.0); Blast Cells 0; Metamyelocytes % 0; Myelocytes % 0; Promyelocytes % 0; Reactive Lymphocytes 0
[2023-10-19 03:54] LABS: Anion Gap 5 (5-15); Carbon Dioxide 33 mmol/L (20-30); Chloride 101 mmol/L (98-107); Potassium 3.5 mmol/L (3.5-5.1); Sodium 139 mmol/L (136-145)
[2023-10-19 03:55] LABS: Calcium 8.6 mg/dL (8.5-10.1)
[2023-10-19 04:00] LABS: BUN/Creatinine Ratio 18.8 (10.0-20.0); Blood Urea Nitrogen 9 mg/dL (9-23); Glucose 113 mg/dL (74-106)
[2023-10-19 04:09] LABS: Band Neutrophils % (manual) 5; Eosinophils % (manual) 4 (0-7); Lymphocytes % (manual) 42 (10.0-50.0); Monocytes % (manual) 4 (0-12); Platelet Estimate Adequate
[2023-10-19 07:40] LABS: Base Excess 6.1 mmol/L (-2.0-2.0)
[2023-10-20] VITALS (108 sets, daily range): BP systolic 104–178; BP diastolic 49–117; PULSE 70–127; RESP 12–31; TEMP 97.3–100.6; O2SAT 93–100
[2023-10-20 03:57] LABS: Hemoglobin 7.8 g/dL (13.5-17.5); Mean Corpuscular Hgb Conc. 33.4 g/dL (32.0-36.0); Red Blood Cells 2.73 10^6/uL (4.5-5.90)
[2023-10-20 04:00] LABS: Hematocrit 23.5 % (41.0-53.0); Mean Corpuscular Hemoglobin 28.7 pg (28.0-32.0); Red Cell Distribution Width 15.1 % (11.8-14.3); White Blood Cell 6.7 10^3/uL (4.4-10.8)
[2023-10-20 04:04] LABS: Basophils % (manual) 0 (0.0-2.0); Blast Cells 0; Metamyelocytes % 0; Myelocytes % 0; Promyelocytes % 0; Reactive Lymphocytes 0
[2023-10-20 04:06] LABS: Anion Gap 7 (5-15); Carbon Dioxide 32 mmol/L (20-30); Chloride 101 mmol/L (98-107); Sodium 140 mmol/L (136-145)
[2023-10-20 04:07] LABS: Calcium 8.3 mg/dL (8.5-10.1)
[2023-10-20 04:12] LABS: BUN/Creatinine Ratio 17.1 (10.0-20.0); Blood Urea Nitrogen 7 mg/dL (9-23); Glucose 110 mg/dL (74-106)
[2023-10-20 04:45] LABS: Band Neutrophils % (manual) 3; Eosinophils % (manual) 1 (0-7); Hypochromia Slight; Lymphocytes % (manual) 22 (10.0-50.0); Monocytes % (manual) 6 (0-12); Platelet Estimate Adequate
[2023-10-20] MEDS: POTASSIUM CHL 20MEQ/100ML 100 ML IV SCH (09:08)
[2023-10-20 12:07] LABS: Base Excess 8.6 mmol/L (-2.0-2.0)
[2023-10-21] VITALS (101 sets, daily range): BP systolic 107–185; BP diastolic 45–113; PULSE 68–139; RESP 10–41; TEMP 88.3–100.6; O2SAT 75–100
[2023-10-21 03:57] LABS: Calcium 8.8 mg/dL (8.7-10.4); Chloride 100 mmol/L (98-107); Potassium 3.2 mmol/L (3.5-5.1); Sodium 139 mmol/L (136-145)
[2023-10-21 03:58] LABS: Anion Gap 5 (5-15); Carbon Dioxide 34 mmol/L (20-30); Hemoglobin 7.5 g/dL (13.5-17.5); White Blood Cell 6.2 10^3/uL (4.4-10.8)
[2023-10-21 04:01] LABS: Hematocrit 22.4 % (41.0-53.0); Mean Corpuscular Hgb Conc. 33.5 g/dL (32.0-36.0); Mean Corpuscular Volume 86.5 fL (80.0-100.0); Red Blood Cells 2.59 10^6/uL (4.5-5.90); Red Cell Distribution Width 14.8 % (11.8-14.3)
[2023-10-21 04:03] LABS: BUN/Creatinine Ratio 22.5 (10.0-20.0); Blood Urea Nitrogen 9 mg/dL (9-23); Glucose 124 mg/dL (74-106)
[2023-10-21 04:04] LABS: Magnesium 1.7 mg/dL (1.6-2.6)
[2023-10-21 04:06] LABS: Band Neutrophils % (manual) 0; Basophils % (manual) 0 (0.0-2.0); Blast Cells 0; Metamyelocytes % 0; Promyelocytes % 0; Reactive Lymphocytes 0
[2023-10-21 05:28] LABS: Eosinophils % (manual) 3 (0-7); Myelocytes % 1; Platelet Estimate Adequate
[2023-10-21 05:29] LABS: Lymphocytes % (manual) 17 (10.0-50.0); Monocytes % (manual) 11 (0-12)
[2023-10-21] MEDS: POTASSIUM CHL 20MEQ/100ML 100 ML IV SCH (06:23)
[2023-10-21 07:57] LABS: Base Excess 11.4 mmol/L (-2.0-2.0)
[2023-10-21] MEDS: POTASSIUM CHL 20 Meq TABLET PO SCH (10:00)
[2023-10-21] MEDS: MAGNESIUM SULFATE 1GM/100ML 100 ML IV ONE (11:56)
[2023-10-21 14:34] LABS: Base Excess 9.8 mmol/L (-2.0-2.0)
[2023-10-21] MEDS: GLYCOPYRROLATE 0.2 MG/ML 1ML VIAL IV PRN (22:30)
[2023-10-22] VITALS (61 sets, daily range): BP systolic 102–185; BP diastolic 49–90; PULSE 100–135; RESP 12–37; TEMP 99–101.7; O2SAT 82–100
[2023-10-22] MEDS: LORazepam 2MG/ML-1ML VIAL IV ONE (00:15)
[2023-10-22] MEDS: METOPROLOL TARTRATE 25 MG TAB PO ONE (00:16)
[2023-10-22 04:10] LABS: White Blood Cell 7.6 10^3/uL (4.4-10.8)
[2023-10-22 04:12] LABS: Hematocrit 20.9 % (41.0-53.0); Mean Corpuscular Hemoglobin 28.2 pg (28.0-32.0); Mean Corpuscular Hgb Conc. 32.6 g/dL (32.0-36.0); Mean Corpuscular Volume 86.3 fL (80.0-100.0); Red Blood Cells 2.42 10^6/uL (4.5-5.90)
[2023-10-22 04:26] LABS: Alanine Aminotransferase 20 U/L (7-40); Albumin 3.2 g/dL (3.2-4.8); Alkaline Phosphatase 38 U/L (46-116); Anion Gap 5 (5-15); Aspartate Aminotransferase 34 U/L (13-40); BUN/Creatinine Ratio 20.5 (10.0-20.0); Blood Urea Nitrogen 9 mg/dL (9-23); Calcium 8.7 mg/dL (8.7-10.4); Carbon Dioxide 33 mmol/L (20-30); Chloride 100 mmol/L (98-107); Glucose 116 mg/dL (74-106); Magnesium 1.8 mg/dL (1.6-2.6); Potassium 3.1 mmol/L (3.5-5.1); Sodium 138 mmol/L (136-145)
[2023-10-22 04:27] LABS: Bilirubin, Total 0.5 mg/dL (0.2-1.0); Total Protein 6.8 g/dL (5.7-8.2)
[2023-10-22 04:42] LABS: Hemoglobin 6.8 g/dL (13.5-17.5)
[2023-10-22 04:44] LABS: Basophils % (manual) 0 (0.0-2.0); Blast Cells 0; Promyelocytes % 0; Reactive Lymphocytes 0
[2023-10-22] MEDS: IBUPROFEN 600 MG TAB PO ONE (05:22)
[2023-10-22] MEDS: POTASSIUM CHL 20MEQ/100ML 100 ML IV ONE ×2 (05:22→08:03)
[2023-10-22 06:10] LABS: Band Neutrophils % (manual) 6; Eosinophils % (manual) 2 (0-7); Lymphocytes % (manual) 13 (10.0-50.0); Metamyelocytes % 1; Monocytes % (manual) 9 (0-12); Myelocytes % 1
[2023-10-22 06:11] LABS: Platelet Estimate Adequate
[2023-10-22] MEDS: MAGNESIUM SULFATE 1GM/100ML 100 ML IV ONE (10:38)
[2023-10-22] MEDS: METOPROLOL TARTRATE 25 MG TAB PO SCH (10:41)
[2023-10-22] MEDS: LORazepam 2MG/ML-1ML VIAL IV PRN (18:28)
[2023-10-22] MEDS: NIFEdipine 10 MG CAP PO SCH (21:27)
[2023-10-23] VITALS (48 sets, daily range): BP systolic 102–163; BP diastolic 50–84; PULSE 76–123; RESP 12–49; TEMP 99.5–100.8; O2SAT 88–100
[2023-10-23 03:59] LABS: Red Blood Cells 2.15 10^6/uL (4.5-5.90)
[2023-10-23 04:02] LABS: Hematocrit 18.7 % (41.0-53.0); Mean Corpuscular Hemoglobin 29.4 pg (28.0-32.0); Mean Corpuscular Hgb Conc. 33.8 g/dL (32.0-36.0); Mean Corpuscular Volume 86.9 fL (80.0-100.0)
[2023-10-23 04:07] LABS: Hemoglobin 6.3 g/dL (13.5-17.5)
[2023-10-23 04:08] LABS: Basophils % (manual) 0 (0.0-2.0); Blast Cells 0; Metamyelocytes % 0; Promyelocytes % 0; Reactive Lymphocytes 0
[2023-10-23 04:23] LABS: Alanine Aminotransferase 20 U/L (7-40); Albumin 3.2 g/dL (3.2-4.8); Alkaline Phosphatase 38 U/L (46-116); Anion Gap 4 (5-15); Aspartate Aminotransferase 29 U/L (13-40); BUN/Creatinine Ratio 23.4 (10.0-20.0); Blood Urea Nitrogen 11 mg/dL (9-23); Calcium 8.7 mg/dL (8.7-10.4); Carbon Dioxide 35 mmol/L (20-30); Chloride 101 mmol/L (98-107); Glucose 125 mg/dL (74-106); Magnesium 2.1 mg/dL (1.6-2.6); Potassium 3.3 mmol/L (3.5-5.1); Sodium 140 mmol/L (136-145)
[2023-10-23 04:24] LABS: Bilirubin, Total 0.6 mg/dL (0.2-1.0); Phosphorus 3.6 mg/dL (2.4-5.1); Total Protein 6.7 g/dL (5.7-8.2)
[2023-10-23 06:05] LABS: Band Neutrophils % (manual) 5; Eosinophils % (manual) 2 (0-7); Lymphocytes % (manual) 11 (10.0-50.0); Monocytes % (manual) 8 (0-12); Myelocytes % 1
[2023-10-23 06:06] LABS: Platelet Estimate Adequate
[2023-10-23] MEDS: POTASSIUM CHL 20MEQ/100ML 100 ML IV ONE (07:54)
[2023-10-23 08:56] LABS: INR 1.12 (0.9-1.15); Partial Thromboplastin Time 27.6 SEC (24.5-34.5); Prothrombin Time 11.8 sec (9.3-11.8)
[2023-10-23 09:04] LABS: % Iron Saturation 16.6 % (20-55)
[2023-10-23 16:33] LABS: Hematocrit 20.5 % (41.0-53.0)
[2023-10-23 16:37] LABS: Hemoglobin 6.9 g/dL (13.5-17.5)
[2023-10-24] VITALS (46 sets, daily range): BP systolic 113–157; BP diastolic 44–86; PULSE 75–131; RESP 12–33; TEMP 97.8–100.4; O2SAT 78–99
[2023-10-24 04:21] LABS: Hemoglobin 8.1 g/dL (13.5-17.5)
[2023-10-24 04:23] LABS: Hematocrit 23.7 % (41.0-53.0); Mean Corpuscular Hgb Conc. 34.2 g/dL (32.0-36.0); Mean Corpuscular Volume 87.8 fL (80.0-100.0); Red Cell Distribution Width 14.7 % (11.8-14.3); White Blood Cell 9.6 10^3/uL (4.4-10.8)
[2023-10-24 04:31] LABS: Anion Gap 5 (5-15); Basophils % (manual) 0 (0.0-2.0); Blast Cells 0; Carbon Dioxide 35 mmol/L (20-30); Chloride 102 mmol/L (98-107); Metamyelocytes % 0; Potassium 3.5 mmol/L (3.5-5.1); Promyelocytes % 0; Reactive Lymphocytes 0; Sodium 142 mmol/L (136-145)
[2023-10-24 04:32] LABS: Calcium 8.3 mg/dL (8.5-10.1)
[2023-10-24 04:37] LABS: BUN/Creatinine Ratio 27.9 (10.0-20.0); Blood Urea Nitrogen 12 mg/dL (9-23); Glucose 118 mg/dL (74-106)
[2023-10-24 04:38] LABS: Magnesium 1.9 mg/dL (1.6-2.6)
[2023-10-24 05:28] LABS: Band Neutrophils % (manual) 2; Eosinophils % (manual) 4 (0-7); Lymphocytes % (manual) 13 (10.0-50.0); Myelocytes % 2
[2023-10-24 05:29] LABS: Large Platelets FEW; Monocytes % (manual) 5 (0-12); Platelet Estimate Adequate; Stomatocytes Few
[2023-10-24] MEDS: MAGNESIUM SULFATE 1GM/100ML 100 ML IV ONE (11:17)
[2023-10-24] MEDS: IRON SUCROSE COMPLEX 100 ML IV SCH (11:18)
[2023-10-24] MEDS: POTASSIUM CHL 20MEQ/100ML 100 ML IV ONE (11:19)
[2023-10-25] VITALS (25 sets, daily range): BP systolic 124–172; BP diastolic 61–93; PULSE 95–121; RESP 18–25; TEMP 98.8–99.9; O2SAT 92–100
[2023-10-25 06:33] LABS: Chloride 104 mmol/L (98-107); Potassium 3.6 mmol/L (3.5-5.1); Sodium 144 mmol/L (136-145)
[2023-10-25 06:34] LABS: Anion Gap 6 (5-15); Calcium 8.7 mg/dL (8.5-10.1); Carbon Dioxide 34 mmol/L (20-30)
[2023-10-25 06:39] LABS: BUN/Creatinine Ratio 23.5 (10.0-20.0); Blood Urea Nitrogen 12 mg/dL (9-23); Glucose 106 mg/dL (74-106)
[2023-10-25 06:40] LABS: Magnesium 2.1 mg/dL (1.6-2.6)
[2023-10-25 07:13] LABS: Hemoglobin 7.7 g/dL (13.5-17.5); Mean Corpuscular Hemoglobin 30.1 pg (28.0-32.0)
[2023-10-25 07:17] LABS: Hematocrit 22.9 % (41.0-53.0); Mean Corpuscular Hgb Conc. 33.7 g/dL (32.0-36.0); Mean Corpuscular Volume 89.2 fL (80.0-100.0); Red Blood Cells 2.56 10^6/uL (4.5-5.90); Red Cell Distribution Width 15.3 % (11.8-14.3); White Blood Cell 8.2 10^3/uL (4.4-10.8)
[2023-10-25 07:18] LABS: Band Neutrophils % (manual) 0; Basophils % (manual) 0 (0.0-2.0); Blast Cells 0; Metamyelocytes % 0; Myelocytes % 0; Promyelocytes % 0; Reactive Lymphocytes 0
[2023-10-25 09:28] LABS: Eosinophils % (manual) 3 (0-7); Lymphocytes % (manual) 21 (10.0-50.0); Monocytes % (manual) 4 (0-12); Platelet Estimate Adequate
[2023-10-26] VITALS (18 sets, daily range): BP systolic 11–157; BP diastolic 62–80; PULSE 80–111; RESP 14–30; TEMP 97.9–100; O2SAT 91–100
[2023-10-26 07:20] LABS: Hematocrit 24.3 % (41.0-53.0); Hemoglobin 8.1 g/dL (13.5-17.5); Mean Corpuscular Hemoglobin 29.8 pg (28.0-32.0); Mean Corpuscular Hgb Conc. 33.4 g/dL (32.0-36.0); Mean Corpuscular Volume 89.3 fL (80.0-100.0); Red Blood Cells 2.72 10^6/uL (4.5-5.90); Red Cell Distribution Width 15.4 % (11.8-14.3); White Blood Cell 8.8 10^3/uL (4.4-10.8)
[2023-10-26 07:23] LABS: Band Neutrophils % (manual) 0; Basophils % (manual) 0 (0.0-2.0); Blast Cells 0; Metamyelocytes % 0; Myelocytes % 0; Promyelocytes % 0; Reactive Lymphocytes 0
[2023-10-26 07:45] LABS: Alanine Aminotransferase 39 U/L (7-40); Alkaline Phosphatase 50 U/L (46-116); Anion Gap 4 (5-15); BUN/Creatinine Ratio 30.6 (10.0-20.0); Blood Urea Nitrogen 15 mg/dL (9-23); Carbon Dioxide 35 mmol/L (20-30); Chloride 105 mmol/L (98-107); Glucose 95 mg/dL (74-106); Potassium 3.5 mmol/L (3.5-5.1); Sodium 144 mmol/L (136-145)
[2023-10-26 07:47] LABS: Albumin 3.3 g/dL (3.2-4.8); Aspartate Aminotransferase 29 U/L (13-40)
[2023-10-26 08:46] LABS: Eosinophils % (manual) 9 (0-7); Lymphocytes % (manual) 21 (10.0-50.0); Monocytes % (manual) 5 (0-12)
[2023-10-26 08:47] LABS: Platelet Estimate Adequate
[2023-10-26 12:50] LABS: Urine Bacteria None Seen /hpf (None Seen)
[2023-10-26 13:04] LABS: Urine Blood 2+ /uL (Negative); Urine Clarity Turbid (Clear); Urine Color Light-Orange (Yellow); Urine Mucus FEW (None Seen); Urine Protein, UAD 1+ (Negative); Urine Urobilinogen Normal (Negative); Urine WBC 9 /hpf (0 - 3); Urine pH 6.5 (5.0-9.0)
[2023-10-26] MEDS: NIFEdipine 10 MG CAP ONE ×2 (21:49→21:52)
[2023-10-27] VITALS (11 sets, daily range): BP systolic 129–158; BP diastolic 63–88; PULSE 94–116; RESP 16–22; TEMP 98.1–98.9; O2SAT 90–100
[2023-10-27 07:02] LABS: Hemoglobin 8.4 g/dL (13.5-17.5)
[2023-10-27 07:04] LABS: Hematocrit 25.7 % (41.0-53.0); Mean Corpuscular Hemoglobin 29.6 pg (28.0-32.0); Mean Corpuscular Hgb Conc. 32.9 g/dL (32.0-36.0); Mean Corpuscular Volume 90.2 fL (80.0-100.0); Red Blood Cells 2.85 10^6/uL (4.5-5.90); Red Cell Distribution Width 15.9 % (11.8-14.3)
[2023-10-27 07:08] LABS: Alanine Aminotransferase 56 U/L (7-40); Albumin 3.4 g/dL (3.2-4.8); Alkaline Phosphatase 55 U/L (46-116); Anion Gap 1 (5-15); Aspartate Aminotransferase 36 U/L (13-40); BUN/Creatinine Ratio 29.4 (10.0-20.0); Blood Urea Nitrogen 15 mg/dL (9-23); Carbon Dioxide 35 mmol/L (20-30); Chloride 105 mmol/L (98-107); Glucose 108 mg/dL (74-106); Magnesium 1.9 mg/dL (1.6-2.6); Potassium 3.4 mmol/L (3.5-5.1); Sodium 141 mmol/L (136-145)
[2023-10-27 07:09] LABS: Bilirubin, Total 1.1 mg/dL (0.2-1.0); Total Protein 7.2 g/dL (5.7-8.2)
[2023-10-27 07:19] LABS: Band Neutrophils % (manual) 0; Basophils % (manual) 0 (0.0-2.0); Blast Cells 0; Metamyelocytes % 0; Myelocytes % 0; Promyelocytes % 0; Reactive Lymphocytes 0
[2023-10-27] MEDS: POTASSIUM CHL 20 Meq TABLET PO ONE (07:30)
[2023-10-27 08:08] LABS: Eosinophils % (manual) 11 (0-7); Lymphocytes % (manual) 26 (10.0-50.0); Monocytes % (manual) 2 (0-12)
[2023-10-27 08:09] LABS: Platelet Estimate Adequate
[2023-10-27] MEDS: NIFEdipine 10 MG CAP ONE ×2 (22:34→22:35)
[2023-10-28] VITALS (13 sets, daily range): BP systolic 112–165; BP diastolic 58–99; PULSE 86–101; RESP 18–22; TEMP 97.9–100; O2SAT 93–99
[2023-10-28 06:01] LABS: Hematocrit 26.6 % (41.0-53.0); Hemoglobin 8.8 g/dL (13.5-17.5); Mean Corpuscular Hemoglobin 30.1 pg (28.0-32.0); Mean Corpuscular Hgb Conc. 33.2 g/dL (32.0-36.0); Mean Corpuscular Volume 90.8 fL (80.0-100.0); Red Blood Cells 2.93 10^6/uL (4.5-5.90); Red Cell Distribution Width 15.6 % (11.8-14.3)
[2023-10-28 06:12] LABS: Band Neutrophils % (manual) 0; Basophils % (manual) 0 (0.0-2.0); Blast Cells 0; Metamyelocytes % 0; Myelocytes % 0; Promyelocytes % 0; Reactive Lymphocytes 0
[2023-10-28 06:15] LABS: Alanine Aminotransferase 67 U/L (7-40); Albumin 3.4 g/dL (3.2-4.8); Alkaline Phosphatase 59 U/L (46-116); Aspartate Aminotransferase 37 U/L (13-40); Calcium 9.1 mg/dL (8.5-10.1); Carbon Dioxide 34 mmol/L (20-30); Chloride 106 mmol/L (98-107); Glucose 109 mg/dL (74-106); Potassium 3.7 mmol/L (3.5-5.1)
[2023-10-28 06:16] LABS: Bilirubin, Total 1.3 mg/dL (0.2-1.0); Total Protein 7.1 g/dL (5.7-8.2)
[2023-10-28 07:03] LABS: Anion Gap 3 (5-15); BUN/Creatinine Ratio 29.8 (10.0-20.0); Blood Urea Nitrogen 14 mg/dL (9-23); Sodium 143 mmol/L (136-145)
[2023-10-28 07:31] LABS: Eosinophils % (manual) 16 (0-7); Lymphocytes % (manual) 15 (10.0-50.0); Monocytes % (manual) 2 (0-12); Platelet Estimate Adequate
[2023-10-28] MEDS: POTASSIUM EFFERVESENT TAB 25 MEQ PO SCH (09:33)
[2023-10-28] MEDS: risperiDONE 1 MG TAB PO SCH (09:50)
[2023-10-28] MEDS: LISINOPRIL 5 MG TAB PO SCH (09:50)
[2023-10-28] MEDS: BUMETANIDE 2.5mg/10ml (0.25 mg/ml) INJ IV SCH (09:56)
[2023-10-28 14:17] LABS: Base Excess 8.2 mmol/L (-2.0-2.0)
[2023-10-29] VITALS (8 sets, daily range): BP systolic 120–141; BP diastolic 71–92; PULSE 77–98; RESP 18–20; TEMP 98.6–99.4; O2SAT 82–97
[2023-10-29 06:37] LABS: Alanine Aminotransferase 58 U/L (7-40); Alkaline Phosphatase 59 U/L (46-116); Calcium 8.9 mg/dL (8.5-10.1); Carbon Dioxide 33 mmol/L (20-30); Chloride 106 mmol/L (98-107)
[2023-10-29 06:38] LABS: Albumin 3.4 g/dL (3.2-4.8); Anion Gap 4 (5-15); Aspartate Aminotransferase 26 U/L (13-40); BUN/Creatinine Ratio 35.4 (10.0-20.0); Bilirubin, Total 1.1 mg/dL (0.2-1.0); Blood Urea Nitrogen 17 mg/dL (9-23); Glucose 99 mg/dL (74-106); Potassium 3.7 mmol/L (3.5-5.1); Sodium 143 mmol/L (136-145); Total Protein 7.1 g/dL (5.7-8.2)
[2023-10-29 07:24] LABS: Basophils # (auto) 0 10 ^3/uL (0-0.2); Basophils % (auto) 0.3 % (0.0-2.0); Eosinophils # (auto) 1.4 10 ^3/uL (0-0.8); Hematocrit 27.8 % (41.0-53.0); Lymphocytes # (auto) 1.5 10 ^3/uL (0.4-5.4); Lymphocytes % (auto) 17.7 % (10.0-50.0); Mean Corpuscular Hemoglobin 29.9 pg (28.0-32.0); Mean Corpuscular Hgb Conc. 32.5 g/dL (32.0-36.0); Mean Corpuscular Volume 92.2 fL (80.0-100.0); Monocytes # (auto) 0.5 10 ^3/uL (0-1.3); Monocytes % (auto) 6.1 % (0.0-12.0); Neutrophils # (auto) 4.9 10 ^3/uL (1.6-8.6); Neutrophils % (auto) 59.5 % (37.0-80.0); Nucleated Red Blood Cells % 0.1 %; Red Blood Cells 3.02 10^6/uL (4.5-5.90); Red Cell Distribution Width 15.5 % (11.8-14.3); White Blood Cell 8.3 10^3/uL (4.4-10.8)
[2023-10-29 07:27] LABS: Eosinophils % (auto) 16.4 % (0.0-7.0)
[2023-10-29] MEDS ORDERED: FERR-7 PO ×2 (09:36→09:37)
[2023-10-29] MEDS ORDERED: NIFEdipine ER 30 MG TAB PO SCH (22:00)
== END 2023-10-29 20:05 | disposition home health service (06) | DRG 870 ==
LOC: ER 10:50 → TELE 13:07 → ICU WEST 15:50 → TELE-EAST 10-24 15:17
PROVIDERS: ADMIT Internal Medicine Pulmonary Disease; ATTEND Internal Medicine Pulmonary Disease
PROC: 5A1955Z Respiratory Ventilation, Greater than 96 Consecutive Hours (ICD-10-PCS; principal; 2023-09-26)
PROC: 0BH17EZ Insertion of Endotracheal Airway into Trachea, Via Natural or Artificial Opening (ICD-10-PCS; 2023-09-26)
PROC: 02HV33Z Insertion of Infusion Device into Superior Vena Cava, Percutaneous Approach (ICD-10-PCS; 2023-09-26)
PROC: 0B968ZZ Drainage of Right Lower Lobe Bronchus, Via Natural or Artificial Opening Endoscopic (ICD-10-PCS; 2023-09-27)
PROC: 0B958ZZ Drainage of Right Middle Lobe Bronchus, Via Natural or Artificial Opening Endoscopic (ICD-10-PCS; 2023-09-27)
PROC: 0B9D8ZX Drainage of Right Middle Lung Lobe, Via Natural or Artificial Opening Endoscopic, Diagnostic (ICD-10-PCS; 2023-10-13)
PROC: 04HY32Z Insertion of Monitoring Device into Lower Artery, Percutaneous Approach (ICD-10-PCS; 2023-10-18)
PROC: 5A09357 Assistance with Respiratory Ventilation, Less than 24 Consecutive Hours, Continuous Positive Airway Pressure (ICD-10-PCS; 2023-10-21)
PROC: 5A09357 Assistance with Respiratory Ventilation, Less than 24 Consecutive Hours, Continuous Positive Airway Pressure (ICD-10-PCS; 2023-10-22)
PROC: 30233N1 Transfusion of Nonautologous Red Blood Cells into Peripheral Vein, Percutaneous Approach (ICD-10-PCS; 2023-10-22)
PROC: 5A09357 Assistance with Respiratory Ventilation, Less than 24 Consecutive Hours, Continuous Positive Airway Pressure (ICD-10-PCS; 2023-10-23)
PROC: 5A09357 Assistance with Respiratory Ventilation, Less than 24 Consecutive Hours, Continuous Positive Airway Pressure (ICD-10-PCS; 2023-10-24)
PROC: 5A09357 Assistance with Respiratory Ventilation, Less than 24 Consecutive Hours, Continuous Positive Airway Pressure (ICD-10-PCS; 2023-10-25)
PROC: 5A09357 Assistance with Respiratory Ventilation, Less than 24 Consecutive Hours, Continuous Positive Airway Pressure (ICD-10-PCS; 2023-10-26)
PROC: 5A09357 Assistance with Respiratory Ventilation, Less than 24 Consecutive Hours, Continuous Positive Airway Pressure (ICD-10-PCS; 2023-10-27)
PROC: 5A09357 Assistance with Respiratory Ventilation, Less than 24 Consecutive Hours, Continuous Positive Airway Pressure (ICD-10-PCS; 2023-10-28)
DX: A41.50 Gram-negative sepsis, unspecified (principal); G93.41 Metabolic encephalopathy; J80 Acute respiratory distress syndrome; I50.33 Acute on chronic diastolic (congestive) heart failure; J15.69 Pneumonia due to other Gram-negative bacteria; J15.9 Unspecified bacterial pneumonia; J44.0 Chronic obstructive pulmonary disease with (acute) lower respiratory infection; E87.4 Mixed disorder of acid-base balance; F03.93 Unspecified dementia, unspecified severity, with mood disturbance; Z68.42 Body mass index [BMI] 45.0-49.9, adult; E66.2 Morbid (severe) obesity with alveolar hypoventilation; I82.611 Acute embolism and thrombosis of superficial veins of right upper extremity; Z20.822 Contact with and (suspected) exposure to COVID-19; D50.0 Iron deficiency anemia secondary to blood loss (chronic); N40.0 Benign prostatic hyperplasia without lower urinary tract symptoms; E87.6 Hypokalemia; I27.23 Pulmonary hypertension due to lung diseases and hypoxia; I11.0 Hypertensive heart disease with heart failure; K59.00 Constipation, unspecified; Z79.899 Other long term (current) drug therapy
CPT/HCPCS: 31624; 31645; 36415; 36556; 36600; 70551; 71045; 71275; 74018; 80048; 80053; 80061; 80076; 80202; 80307; 80320; 81001; 82140; 82270; 82805; 83036; 83540; 83550; 83605; 83735; 83880; 84100; 84443; 84484; 85007; 85014; 85018; 85025; 85027; 85048; 85610; 85730; 86850; 86900; 86901; 86920; 87040; 87045; 87070; 87077; 87081; 87086; 87186; 87205; 87426; 87427; 87493; 87804; 92507; 92610; 93005; 93306; 93926; 93970; 93971; 94002; 94003; 94640; 94644; 94660; 96365; 96372; 96375; 97110; 97116; 97163; 97530; 99291; C9113; G0378; J0171; J0330; J0714; J1756; J2250; J2543; J2704; J3480; J7060